=== PATIENT | female | born 1940 | race Caucasian/White ===

== ENCOUNTER 2017-10-24 06:37 | Emergency (ER) | payer MEDICARE ==
--- NOTE | 2017-10-24 06:49 | ER Report ---
History and Physical Time Seen By MD: 06:41 (SUZIE NAVARRO MD) HPI/ROS CHIEF COMPLAINT: short of breath HISTORY OF PRESENT ILLNESS: This is a 77 year old female. She came to the ER with her daughter this morning because of shortness of breath. [place] and has been short of breath. If she takes it easy and slow she does okay. She has not yet gotten established with a doctor here, but has appointment scheduled with Dr. Hunt and will be seeing a early childhood director as well. 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 She normally wears oxygen at home. She has mild chest tightness this morning. No fevers or chills, but does have a chronic cough. She does have oxygen at home and is usually on 2.5-3 liters. She said her concentrator was not working well and switched to portable which did not seem to be helping. REVIEW OF SYSTEMS: Constitutional: As jaron. Eyes: No vision changes. ENT: No sore throat. No congestion. Cardiovascular: As above. Respiratory: As above. Gastrointestinal: No abdominal pain. No nausea or vomiting. Genitourinary: No dysuria. Skin: No rashes. Neurological: No weakness. (SUZIE NAVARRO MD) Allergies: Coded Allergies: amoxicillin (Verified Allergy, Intermediate, 10/24/17) azithromycin (Verified Allergy, Intermediate, 10/24/17) bisoprolol (Verified Allergy, Intermediate, 10/24/17) cephalexin (Verified Allergy, Intermediate, 10/24/17) clavulanic acid (Verified Allergy, Intermediate, 10/24/17) Home Meds Reported Medications Omeprazole (OMEPRAZOLE) 20 Mg Tablet.dr, 20 MG PO QDAY, TAB 10/24/17 Docusate Sodium (COLACE) 100 Mg Capsule, 100 MG PO QDAY, CAPSULE 10/24/17 Lactobacillus Combination No.4 (PROBIOTIC) 1 Each Capsule, 1 EACH PO QDAY, CAPSULE 10/24/17 Fenofibrate Nanocrystallized (FENOFIBRATE) 145 Mg Tablet, 145 MG PO QDAY 10/24/17 Hydrocodone Bit/Acetaminophen (HYDROCODON-ACETAMINOPHEN 5-325) 1 Each Tablet, 1 EACH PO Q4H, TAB 10/24/17 Levothyroxine Sodium (LEVOTHYROXINE SODIUM) 75 Mcg Tablet, 75 MCG PO QDAY, TAB 10/24/17 Hydrochlorothiazide (HYDROCHLOROTHIAZIDE) 25 Mg Tablet, 1 TAB PO QDAY, TAB 10/24/17 Folic Acid (FOLIC ACID) 1 Mg Tablet, 1 MG PO QDAY, TAB 10/24/17 Amitriptyline Hcl (AMITRIPTYLINE HCL) 10 Mg Tablet, 10 MG PO QHS, #5 TAB 10/24/17 Reviewed Nurses Notes: Yes (SUZIE NAVARRO MD) Constitutional Vital Sign - Last 24 Hours 10/24/17 10/24/17 10/24/17 10/24/17 06:42 06:45 07:04 07:13 Temp 98.1 Pulse 72 Resp 24 B/P (MAP) 139/79 139/79 (99) 128/65 (86) Pulse Ox 44 O2 Delivery Room Air O2 Flow Rate 2.0 10/24/17 10/24/17 10/24/17 10/24/17 07:39 07:45 08:12 08:30 Pulse 89 Resp 26 B/P (MAP) 110/54 (72) 151/73 (99) 134/71 (92) Pulse Ox 98 (VALERIA RILEY DO) Physical Exam General Appearance: The patient is alert. Acute distress due to shortness of breath. Eyes: Pupils are equal, round. No pallor, injection or icterus. ENT: Mucous membranes are moist. Normal oral mucosa. Posterior oropharynx is normal. Neck: Supple and non tender. No lymphadenopathy. Respiratory: Lungs have dry crackles, but the patient tells me she always does. Her oxygen saturations are up to 94% on 2 liters by nasal canula. Cardiovascular: Regular rate and rhythm. No murmurs, gallops or rubs. Normal capillary refill. No edema. Gastrointestinal: Abdomen is soft and non tender. Nondistended. Normal active bowel sounds. Neurological: Alert and oriented x3. Skin: Warm and dry. Musculoskeletal: Extremities are nontender. DIFFERENTIAL DIAGNOSIS: After history and physical exam, differential diagnosis was considered for shortness of breath including but not limited to pulmonary infectious process, COPD, asthma, pulmonary embolus and congestive heart failure. Most likely shortness of breath is going to be due to mechanical failure of her oxygen equipment and she is doing much better on the oxygen here in the ER. (SUZIE NAVARRO MD) Medical Decision Making Data Points Result Diagram: 10/24/17 0702 10/24/17 0702 Laboratory Hematology Test 10/24/17 07:02 Red Blood Count 4.36 M/uL (4.17-5.56) Mean Corpuscular Volume 93.6 fL (80.0-96.0) Mean Corpuscular Hemoglobin 32.4 pg (26.0-33.0) Mean Corpuscular Hemoglobin Concent 34.6 g/dL (32.0-36.0) Red Cell Distribution Width 15.3 % (11.5-14.5) Mean Platelet Volume 7.5 fL (7.2-11.1) Neutrophils (%) (Auto) 68.2 % (39.4-72.5) Lymphocytes (%) (Auto) 17.7 % (17.6-49.6) Monocytes (%) (Auto) 10.9 % (4.1-12.4) Eosinophils (%) (Auto) 2.4 % (0.4-6.7) Basophils (%) (Auto) 0.8 % (0.3-1.4) Nucleated RBC Relative Count (auto) 0.1 /100WBC Neutrophils # (Auto) 4.2 K/uL (2.0-7.4) Lymphocytes # (Auto) 1.1 K/uL (1.3-3.6) Monocytes # (Auto) 0.7 K/uL (0.3-1.0) Eosinophils # (Auto) 0.2 K/uL (0.0-0.5) Basophils # (Auto) 0.1 K/uL (0.0-0.1) Nucleated RBC Absolute Count (auto) 0.01 K/uL D-Dimer Quantitative (PE/DVT) 0.80 ug/ml (0-0.50) Sodium Level 136 mmol/L (137-145) Potassium Level 2.9 mmol/L (3.5-5.0) Chloride Level 92 mmol/L (98-107) Carbon Dioxide Level 37 mmol/L (22-31) Blood Urea Nitrogen 18 mg/dl (7-18) Creatinine 0.80 mg/dl (0.52-1.04) Glomerular Filtration Rate Calc > 60.0 Random Glucose 107 mg/dl (75-110) Calcium Level 9.4 mg/dl (8.4-10.2) Total Bilirubin 0.5 mg/dl (0.2-1.3) Aspartate Amino Transf (AST/SGOT) 32 U/L (0-35) Alanine Aminotransferase (ALT/SGPT) 37 U/L (0-56) Alkaline Phosphatase 93 U/L (0-126) Troponin I 0.014 ng/ml B-Type Natriuretic Peptide 155 pg/ml (0-100) Total Protein 7.6 gm/dl (6.3-8.2) Albumin 3.8 g/dl (3.5-5.0) Chemistry Test 10/24/17 07:02 White Blood Count 6.2 k/uL (4.5-11.0) Red Blood Count 4.36 M/uL (4.17-5.56) Hemoglobin 14.1 g/dL (12.0-16.0) Hematocrit 40.8 % (34.0-47.0) Mean Corpuscular Volume 93.6 fL (80.0-96.0) Mean Corpuscular Hemoglobin 32.4 pg (26.0-33.0) Mean Corpuscular Hemoglobin Concent 34.6 g/dL (32.0-36.0) Red Cell Distribution Width 15.3 % (11.5-14.5) Platelet Count 327 K/uL (150-450) Mean Platelet Volume 7.5 fL (7.2-11.1) Neutrophils (%) (Auto) 68.2 % (39.4-72.5) Lymphocytes (%) (Auto) 17.7 % (17.6-49.6) Monocytes (%) (Auto) 10.9 % (4.1-12.4) Eosinophils (%) (Auto) 2.4 % (0.4-6.7) Basophils (%) (Auto) 0.8 % (0.3-1.4) Nucleated RBC Relative Count (auto) 0.1 /100WBC Neutrophils # (Auto) 4.2 K/uL (2.0-7.4) Lymphocytes # (Auto) 1.1 K/uL (1.3-3.6) Monocytes # (Auto) 0.7 K/uL (0.3-1.0) Eosinophils # (Auto) 0.2 K/uL (0.0-0.5) Basophils # (Auto) 0.1 K/uL (0.0-0.1) Nucleated RBC Absolute Count (auto) 0.01 K/uL D-Dimer Quantitative (PE/DVT) 0.80 ug/ml (0-0.50) Glomerular Filtration Rate Calc > 60.0 Calcium Level 9.4 mg/dl (8.4-10.2) Total Bilirubin 0.5 mg/dl (0.2-1.3) Aspartate Amino Transf (AST/SGOT) 32 U/L (0-35) Alanine Aminotransferase (ALT/SGPT) 37 U/L (0-56) Alkaline Phosphatase 93 U/L (0-126) Troponin I 0.014 ng/ml B-Type Natriuretic Peptide 155 pg/ml (0-100) Total Protein 7.6 gm/dl (6.3-8.2) Albumin 3.8 g/dl (3.5-5.0) Coagulation Test 10/24/17 07:02 D-Dimer Quantitative (PE/DVT) 0.80 ug/ml (VALERIA RILEY DO) EKG/Imaging EKG Interpretation 12 lead EKG: Rhythm: normal sinus rhythm, rate 84 Shipman: normal QRS: Prolonged QT ST segments: Nonspecific ST and T-wave changes (SUZIE NAVARRO MD) Imaging TA CHEST WW/O CNTR (PULRoscoe AGUILAR) HISTORY: hypoxia ADDITIONAL HISTORY: None. TECHNIQUE: CTA chest with intravenous contrast. Axial imaging acquired following administration of IV contrast timed for maximum opacification of the pulmonary arterial vasculature. Slab 3-D MIP reconstructed images were also created for further evaluation and interpretation. Reconstruction of the source data set includes multiplanar 2-D in the sagittal and coronal planes and 3-D reconstructed coronal slab MIP series. 3-D images were created by the technologist. Dose Lowering Technique One of the following dose optimization techniques was utilized in the performance of this exam: Automated exposure control; adjustment of the mA and/ or kV according to the patient's size; or use of an iterative reconstruction technique. Specific details can be referenced in the facility's radiology CT exam operational policy. CONTRAST: 25 mL Isovue-370 COMPARISON: Two view chest performed earlier today FINDINGS: Lungs/pleura: Coarse interstitial changes are seen throughout the lungs with peripheral blebs. There is left apical pleural thickening. Also along the lateral aspect of the left pulmonary apex is a rounded area of consolidation measuring 1.9 x 2.1 cm and abuts the lateral pleural margin. Small air bronchograms are present. There appears to be a feeding artery. The appearance is concerning for a neoplastic process.. There are pleural-based calcifications seen along the inferolateral left thorax Heart/vessels: No evidence of pulmonary emboli. Pulmonary trunk is dilated at 3.8 cm.. Main pulmonary arteries also dilated there are moderate vascular calcifications of the thoracic aorta and branch vessels including the coronary arteries. Mediastinum/lymph nodes: 1.2 x 0.7 cm prevascular space lymph node or calcified precarinal and AP window lymph nodes subcentimeter pretracheal and AP window lymph nodes also noted Visualized upper abdomen: Calcific granulomas in the spleen. Liver is incompletely imaged although there is suggestion of hepatomegaly Bones/soft tissues: Scoliosis of the thoracic spine. No aggressive appearing bone lesions are seen Additional findings: None IMPRESSION: No evidence of pulmonary emboli Coarse initial changes and peripheral blebs are seen throughout the lungs likely chronic There is a 1.9 x 2.1 cm rounded area of consolidation in the lateral aspect the left pulmonary apex with small air bronchograms in the feeding artery. The appearance is concerning for neoplastic process. This could be further evaluated with percutaneous biopsy or PET scan Pleural-based calcification seen along the inferolateral left thorax raising the possibility of asbestos exposure. Evidence of a prior granulomatous process Dilatation of the pulmonary trunk and main pulmonary arteries which can be seen with pulmonary arterial hypertension. CHEST PA AND LAT INDICATION: RESP DISTRESS COMPARISON: None available FINDINGS: Heart size within normal limits. There is diffuse interstitial prominence noted throughout the lungs. Areas of fibrosis are seen within the lower lobes. Within the left upper lobe peripherally, there is an area of increased airspace density this may be related to underlying interstitial disease, but infiltrate or mass is not excluded. There is no pneumothorax or pleural effusion. IMPRESSION: 1. Diffuse underlying interstitial lung disease 2. Hazy peripheral left upper lobe opacity, this could represent an area area of scarring or fibrosis, infiltrate or underlying mass. Recommend CT for further characterization. (VALERIA RILEY DO) ED Course/Re-evaluation Clinical Indication for ER IV: IV Access (SUZIE NAVARRO MD) ED Course Discussed with Dr. Navarro and assumed care at 0705 Re-evaluation 0740- I re evaluated the patient at 740 and updated the patient on course of treatment. Patient's d-dimer came back elevated prompting a CTA of the chest to rule out pulmonary embolism. The patient was resting comfortably on supplemental oxygen at time of reevaluation in no acute distress. Patient voiced understanding of the plan. Potassium levels were found to be 2.9 and the patient received 40 meq of potassium for repletion CTA results showed a small opacity in the left apex which is concerning for neoplasm so a clearance representative from oncology came to speak with the patient Respiratory therapy also came to evaluate the patient Patient was stable at time of discharge. Decision to Disposition Date: Oct 24, 2017 Decision to Disposition Time: 10:57 (VALERIA RILEY DO) Depart Departure Latest Vital Signs Vital Signs Date Time Temp Pulse Resp B/P (MAP) Pulse Ox O2 Delivery O2 Flow Rate FiO2 10/24/17 08:30 134/71 (92) 10/24/17 07:39 89 26 98 10/24/17 07:13 2.0 10/24/17 06:42 98.1 Room Air (VALERIA RILEY DO) Impression: Primary Impression: Dyspnea Condition: Improved Disposition: HOME OR SELF-CARE Patient Instructions: Dyspnea (ED) Additional Instructions: Please follow up with her family doctor. These returned promptly if any worsening shortness of breath, fevers, chills, chest pain, abdominal pain, nausea, vomiting. SUZIE NAVARRO MD Oct 24, 2017 06:49 VALERIA RILEY DO Oct 24, 2017 07:06
--- NOTE | 2017-10-24 06:53 | EKG ---
FACILITY: [facility] PATIENT NAME: JIA BRYSON : [id number] MR: [id number] V: [id number] EXAM DATE: ORDERING PHYSICIAN: SUZIE INGRAM TECHNOLOGIST: DAVE Duke Reason : CP Blood Pressure : / mmHG Vent. Rate : 084 BPM Atrial Rate : 084 BPM P-R Int : 148 ms QRS Dur : 086 ms QT Int : 408 ms P-R-T Axes : 057 -09 004 degrees QTc Int : 482 ms Normal sinus rhythm Voltage criteria for left ventricular hypertrophy Prolonged QT Abnormal ECG No previous ECGs available Referred By: NATALY Confirmed By:
[2017-10-24 07:21] LABS: PLATELET COUNT, AUTOMATED 327 K/uL (150-450)
[2017-10-24] MEDS ORDERED: LACT1CAP6 PO (07:24)
[2017-10-24] MEDS ORDERED: AMIT-104 PO (07:24)
[2017-10-24] MEDS ORDERED: FOLI-68 PO (07:24)
[2017-10-24] MEDS ORDERED: HYDR-385 PO (07:24)
[2017-10-24] MEDS ORDERED: DOCU-416 PO (07:24)
[2017-10-24] MEDS ORDERED: OMEP-137 PO (07:24)
[2017-10-24] MEDS ORDERED: HYDR-2966 PO (07:24)
[2017-10-24] MEDS ORDERED: LEVO75TA73 PO (07:24)
[2017-10-24] MEDS ORDERED: FENO145T36 PO (07:24)
[2017-10-24] MEDS ORDERED: POTASSIUM CHL 20 MEQ TABCR PO ONE (07:30)
[2017-10-24] MEDS ORDERED: NS 0.9% 150 ML BAG 150 ML ONE (07:47)
[2017-10-24] MEDS ORDERED: IOPAMIDOL 76% 75 ML INFUS BTL 75 ML ONE (07:47)
--- NOTE | 2017-10-24 08:02 | RADIOLOGY IMAGING REPORT ---
FACILITY: [facility] - [place] PATIENT NAME: Elana Fuentes : 1940 MR: [id number] V: [id number] EXAM DATE: ORDERING PHYSICIAN: SUZIE INGRAM TECHNOLOGIST: Location: [facility] [place] Patient: Elana Fuentes : 1940 Visit/Account:[id number] Date of Sevice: 10/24/2017 CHEST PA AND LAT INDICATION: RESP DISTRESS COMPARISON: None available FINDINGS: Heart size within normal limits. There is diffuse interstitial prominence noted throughout the lungs. Areas of fibrosis are seen with in the lower lobes. Within the left upper lobe peripherally, there is an area of increased airspace density this may be related to underlying interstitial disease, but infiltrate or mass is not exclude d. There is no pneumothorax or pleural effusion. IMPRESSION: 1. Diffuse underlying interstitial lung disease 2. Hazy peripheral left upper lobe opacity, this could represent an area area of scarring or fibrosi s, infiltrate or underlying mass. Recommend CT for further characterization. Report Dictated By: Himanshu Reagan at 10/24/2017 7:55 AM Report E-Signed By: Himanshu Reagan at 10/24/2017 7:58 AM WSN:[id number]
[2017-10-24 08:30] VITALS: BP 134/71
--- NOTE | 2017-10-24 08:40 | RADIOLOGY IMAGING REPORT ---
FAC[place] [facility] [place]IENT NAME: Elana Fuentes : 1940 MR: [id number] V: [id number] EXAM DATE: ORDERING PHYSICIAN: VALERIA RILEY TECHNOLOGIST: Location: [facility] [place] Patient: Elana Fuentes : 1940 Visit/Account:[id number] Date of Sevice: 10/24/2017 CTA CHEST WW/O CNTR (PULM ANG) HISTORY: hypoxia ADDITIONAL HISTORY: None. TECHNIQUE: CTA chest with intravenous contrast. Axial imaging acquired following administration of IV contrast timed for maximum opacification of the pulmonary arterial vasculature. Slab 3-D MIP preet nstructed images were also created for further evaluation and interpretation. Reconstruction of the [facility] data set includes multiplanar 2-D in the sagittal and coronal planes and 3-D reconstructed jigna nal slab MIP series. 3-D images were created by the technologist. Dose Lowering Technique One of the following dose optimization techniques was utilized in the performance of this exam: Autom ated exposure control; adjustment of the mA and/or kV according to the patient's size; or use of an i terative reconstruction technique. Specific details can be referenced in the facility's radiology C T exam operational policy. CONTRAST: 25 mL Isovue-370 COMPARISON: Two view chest performed earlier today FINDINGS: Lungs/pleura: Coarse interstitial changes are seen throughout the lungs with peripheral blebs. Ther e is left apical pleural thickening. Also along the lateral aspect of the left pulmonary apex is a r ounded area of consolidation measuring 1.9 x 2.1 cm and abuts the lateral pleural margin. Small air bronchograms are present. There appears to be a feeding artery. The appearance is concerning for a neoplastic process.. There are pleural-based calcifications seen along the inferolateral left thorax Heart/vessels: No evidence of pulmonary emboli. Pulmonary trunk is dilated at 3.8 cm.. Main pulmonary arteries also dilated there are moderate vascu lar calcifications of the thoracic aorta and branch vessels including the coronary arteries. Mediastinum/lymph nodes: 1.2 x 0.7 cm prevascular space lymph node or calcified precarinal and AP wi ndow lymph nodes subcentimeter pretracheal and AP window lymph nodes also noted Visualized upper abdomen: Calcific granulomas in the spleen. Liver is incompletely imaged although there is suggestion of hepatomegaly Bones/soft tissues: Scoliosis of the thoracic spine. No aggressive appearing bone lesions are seen Additional findings: None IMPRESSION: No evidence of pulmonary emboli Coarse initial changes and peripheral blebs are seen throughout the lungs likely chronic There is a 1.9 x 2.1 cm rounded area of consolidation in the lateral aspect the left pulmonary apex w ith small air bronchograms in the feeding artery. The appearance is concerning for neoplastic proces s. This could be further evaluated with percutaneous biopsy or PET scan Pleural-based calcification seen along the inferolateral left thorax raising the possibility of asbes tos exposure. Evidence of a prior granulomatous process Dilatation of the pulmonary trunk and main pulmonary arteries which can be seen with pulmonary arteri al hypertension. Report Dictated By: Ivelisse Gomez MD at 10/24/2017 8:18 AM Report E-Signed By: Ivelisse Gomez MD at 10/24/2017 8:35 AM WSN:[id number]
== END 2017-10-24 11:08 | disposition home or self-care (01) ==
LOC: ER 06:46
DX: R06.02 Shortness of breath (principal)
CPT/HCPCS: 71046; 71275; 83880; 84484; 85025; 85379; 93005; 99284; A9270; Q9967; 82040; 82247; 82310; 82374; 82435; 82565; 82947; 84075; 84132; 84155; 84295; 84450; 84460; 84520

== ENCOUNTER 2017-11-09 13:21 | Outpatient (RCR) | payer MEDICARE ==
[2017-10-27 10:04] VITALS: BP 135/72
--- NOTE | 2017-10-27 17:14 | ONCOLOGY CONSULTATION ---
EVENT DATE: October 27, 2017 REASON FOR CONSULTATION Evaluation and management of left pulmonary nodule. HISTORY OF PRESENT ILLNESS Patient is a 77-year-old female who was diagnosed with arthritis, most probably rheumatoid arthritis, and as per patient she had in the past pulmonary nodule and the patient was treated with rituximab at that time, but there is no documentation so far. Patient presented to the emergency room at [facility] recently with increasing shortness of breath, having come from low elevation to high elevation area. But during her evaluation patient had a CT chest done on October 24, 2017 which showed 1.9 x 2.1 cm round area of consolidation in the lateral aspect of the left pulmonary apex with a small air bronchogram in the feeding artery concerning for a neoplastic process. Patient was referred for further evaluation and management. PAST MEDICAL HISTORY 1. Arthritis, most probably moderate arthritis with pulmonary nodule in the past treated with rituximab. 2. Hypertension. 3. Hypothyroidism. 4. Hypercholesterolemia. 5. GERD. PAST SURGICAL HISTORY 1. Total abdominal hysterectomy and bilateral salpingo-oophorectomy for uterine bleeding. 2. Cholecystectomy. 3. Tonsillectomy FAMILY HISTORY Noncontributory. SOCIAL HISTORY Patient is with three children, two sons and one daughter. 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 She quit smoking 20 years ago after a half a pack a day for 20 years. Denies any abuse of alcohol or illicit drugs. CURRENT MEDICATIONS 1. Omeprazole 20 mg daily. 2. Colace 100 mg daily. 3. Lactobacillus combination number four. 4. Probiotic one capsule daily. 5. Fenofibrate 145 mg daily. 6. Hydrocodone/acetaminophen 5/325 one tablet every four hours. 7. Levothyroxine 75 mcg daily. 8. Hydrochlorothiazide 25 mg daily. 9. Folic acid 1 mg daily. 10. Amitriptyline 10 mg at bedtime. ALLERGIES 1. KEFLEX. 2. AUGMENTIN. 3. ZITHROMAX. All cause skin rash. REVIEW OF SYSTEMS CONSTITUTIONAL: No appetite or weight change. No fever, chills or sweating. No recent infection. HEENT: Ears: No tinnitus or hearing problem. Nose: No nasal discharge or epistaxis. Throat: No sore throat or mouth ulcers. Eyes: No diplopia or visual changes. RESPIRATORY: She has shortness of breath. Patient has cough with expectoration. Nr hemoptysis. CARDIOVASCULAR: No chest pain, orthopnea, or paroxysmal nocturnal dyspnea (PND) . No edema. No palpitations. GASTROINTESTINAL: No nausea or vomiting. No diarrhea or constipation. No change in bowel movements. No heartburn or swallowing difficulties. No abdominal pain. No jaundice. No hematemesis, melena or rectal bleeding. GENITOURINARY: No hematuria or dysuria. MUSCULOSKELETAL: She has pain all over her joints. NEUROLOGICAL: She has occasional headaches. No tingling or numbness in the hands or feet. No convulsions. HEMATOLOGIC/LYMPHATIC: No bleeding or easy bruising. She is weak, tired and fatigued. No enlarged lymph nodes. SKIN: No skin rash or lumps. PSYCHIATRIC: No anxiety or depression. PHYSICAL EXAMINATION GENERAL: Looks stable. Well-developed, well-nourished, and in no acute distress. VITAL SIGNS: Blood pressure 135/72, pulse 108 per minute, respirations 16 per minute, temperature 96.8, oxygen saturation 98% on 4L oxygen. HEENT: Head: Atraumatic. No sinus tenderness to palpation. Eyes: No icterus or conjunctivitis. Mouth and Throat: No oral thrush or mucositis. NECK: Supple. No cervical or supraclavicular lymphadenopathy. LUNGS: Patient has bilateral fine crackles. HEART: Regular rate and rhythm. No gallops, murmurs, clicks or rubs. ABDOMEN: Soft and lax. No tenderness. No hepatosplenomegaly. No masses. EXTREMITIES: No cyanosis, clubbing or edema. LYMPHATICS: No peripheral lymphadenopathy. NEUROLOGICAL: Conscious, alert and oriented times three. No focal motor or sensory deficits. PSYCHIATRIC: Mood and affect appear normal. SKIN: No skin rash, bruise or purpuric eruption. ASSESSMENT 1. Left upper pulmonary nodule. Could be due to her rheumatoid arthritis with pulmonary nodule versus lung cancer, especially adenocarcinoma given her background of pulmonary fibrosis. I am planning to get a CT-guided biopsy of the pulmonary nodule and further evaluation and management will depend on the result. If the patient will have rheumatoid arthritis causing the pulmonary nodule, then the treatment with rituximab will be the plan of management. But if the patient will have a cancer then a staging workup followed by treatment depending on the stage will be the plan of management. I spent time with the patient and her daughter explaining the plan of management. They are agreeable with such plan. 2. Hypothyroidism on treatment. 3. Hypertension on treatment. 4. Gastroesophageal reflux disease on omeprazole. 5. Arthritis, most probably rheumatoid arthritis with pulmonary nodule with treatment with rituximab in the past. PLAN 1. CT-guided biopsy of the left upper pulmonary nodule. 2. Patient to return in one week after her biopsy for further evaluation and management. 3. Patient to contact us for any new concern or complaints. MTDD
[~2017-11-09] VITALS: Ht 158.1 cm; Wt 73.7 kg
[~2017-11-09 13:21] MED LIST: AMIT-104 PO; DOCU-416 PO; FENO145T36 PO; FOLI-68 PO; HYDR-2966 PO; HYDR-385 PO; LACT1CAP6 PO; LEVO75TA73 PO; OMEP-137 PO
[2017-11-09 13:39] VITALS: BP 104/51
--- NOTE | 2017-11-09 17:32 | ONCOLOGY FOLLOW UP NOTE ---
EVENT DATE: November 09, 2017 DIAGNOSES 1. Left upper lobe nodule negative by biopsy for malignancy. 2. Hypothyroidism. 3. Hypertension. 4. Gastroesophageal reflux disease. 5. Arthritis, possible rheumatoid arthritis. CHIEF COMPLAINT Patient is here today for followup of her biopsy of the left upper lobe nodule. HEMATOLOGY/ONCOLOGY HISTORY Patient is a 77-year-old female who was diagnosed with arthritis, most probably rheumatoid arthritis, and as per patient she had in the past pulmonary nodule and the patient was treated with rituximab at that time, but there is no documentation so far. Patient presented to the emergency room at [facility] recently with increasing shortness of breath, having come from low elevation to high elevation area. But during her evaluation patient had a CT chest done on October 24, 2017 which showed 1.9 x 2.1 cm round area of consolidation in the lateral aspect of the left pulmonary apex with a small air bronchogram in the feeding artery concerning for a neoplastic process. Patient was referred for further evaluation and management. Patient had CT-guided biopsy of the left upper lobe nodule done on November 03, 2017 and the pathology came back negative for malignancy or vasculitis. There was benign lung parenchyma fibrosis and chronic inflammation to include noncaseating granulomatous inflammation. HISTORY OF PRESENT ILLNESS Patient is here today for followup of her left upper pulmonary lobe. She is doing fine currently, except for having fatigue and weakness from her hypoxemia. Other than that she is doing fine. PAST MEDICAL HISTORY 1. Arthritis, most probably moderate arthritis with pulmonary nodule in the past treated with rituximab. 2. Hypertension. 3. Hypothyroidism. 4. Hypercholesterolemia. 5. GERD. PAST SURGICAL HISTORY 1. Total abdominal hysterectomy and bilateral salpingo-oophorectomy for uterine bleeding. 2. Cholecystectomy. 3. Tonsillectomy FAMILY HISTORY Noncontributory. SOCIAL HISTORY Patient is with three children, two sons and one daughter. 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 She quit smoking 20 years ago after a half a pack a day for 20 years. Denies any abuse of alcohol or illicit drugs. CURRENT MEDICATIONS 1. Omeprazole 20 mg daily. 2. Colace 100 mg daily. 3. Lactobacillus combination number four. 4. Probiotic one capsule daily. 5. Fenofibrate 145 mg daily. 6. Hydrocodone/acetaminophen 5/325 one tablet every four hours. 7. Levothyroxine 75 mcg daily. 8. Hydrochlorothiazide 25 mg daily. 9. Folic acid 1 mg daily. 10. Amitriptyline 10 mg at bedtime. ALLERGIES 1. KEFLEX. 2. AUGMENTIN. 3. ZITHROMAX. All cause skin rash. REVIEW OF SYSTEMS CONSTITUTIONAL: No appetite or weight change. No fever, chills or sweating. No recent infection. HEENT: Ears: No tinnitus or hearing problem. Nose: No nasal discharge or epistaxis. Throat: No sore throat or mouth ulcers. Eyes: No diplopia or visual changes. RESPIRATORY: She has shortness of breath. Patient has cough with expectoration. Nr hemoptysis. CARDIOVASCULAR: No chest pain, orthopnea, or paroxysmal nocturnal dyspnea (PND) . No edema. No palpitations. GASTROINTESTINAL: No nausea or vomiting. No diarrhea or constipation. No change in bowel movements. No heartburn or swallowing difficulties. No abdominal pain. No jaundice. No hematemesis, melena or rectal bleeding. GENITOURINARY: No hematuria or dysuria. MUSCULOSKELETAL: She has pain all over her joints. NEUROLOGICAL: She has occasional headaches. No tingling or numbness in the hands or feet. No convulsions. HEMATOLOGIC/LYMPHATIC: No bleeding or easy bruising. She is weak, tired and fatigued. No enlarged lymph nodes. SKIN: No skin rash or lumps. PSYCHIATRIC: No anxiety or depression. PHYSICAL EXAMINATION GENERAL: Looks stable. Well-developed, well-nourished, and in no acute distress. VITAL SIGNS: Blood pressure 104/51, pulse 96 per minute, respirations 16 per minute, temperature 97.1, oxygen saturation 95% on 6L oxygen. HEENT: Head: Atraumatic. No sinus tenderness to palpation. Eyes: No icterus or conjunctivitis. Mouth and Throat: No oral thrush or mucositis. NECK: Supple. No cervical or supraclavicular lymphadenopathy. LUNGS: Patient has bilateral fine crackles. HEART: Regular rate and rhythm. No gallops, murmurs, clicks or rubs. ABDOMEN: Soft and lax. No tenderness. No hepatosplenomegaly. No masses. EXTREMITIES: No cyanosis, clubbing or edema. LYMPHATICS: No peripheral lymphadenopathy. NEUROLOGICAL: Conscious, alert and oriented times three. No focal motor or sensory deficits. PSYCHIATRIC: Mood and affect appear normal. SKIN: No skin rash, bruise or purpuric eruption. DIAGNOSTIC DATA CT-guided biopsy of the left upper lobe nodule done on November 03, 2017 came back negative for malignancy. ASSESSMENT 1. Left upper pulmonary nodule status post CT-guided biopsy done on November 03, 2017 , and the pathology came back negative for malignancy or vasculitis. There was benign lung parenchyma with fibrosis and chronic inflammation to include noncaseating granulomatous inflammation. Given that the nodule is negative for malignancy, I am planning to repeat her CT scan in three months from now and I will see her after that to decide about further management. If that nodule in the left upper lobe continues to grow then I will repeat her CT-guided biopsy at that time. I discussed that with the patient and her daughter. They are agreeable with the plan of management. 2. Hypothyroidism on treatment. 3. Hypertension on treatment. 4. Gastroesophageal reflux disease on omeprazole. 5. Rheumatoid arthritis with pulmonary nodule in the past treated with rituximab at that time. PLAN 1. Continue followup. 2. Patient to return in three months with CBC, chem panel and CT chest. 3. Patient to contact us for any new concerns or complaints. MRAVA
== END 2018-01-24 ==
LOC: ONC 13:21
PROVIDERS: ATTEND Internal Medicine Hematology
DX: R91.1 Solitary pulmonary nodule (principal); E03.9 Hypothyroidism, unspecified; I10 Essential (primary) hypertension; K21.9 Gastro-esophageal reflux disease without esophagitis; M06.9 Rheumatoid arthritis, unspecified; Z87.891 Personal history of nicotine dependence; R53.1 Weakness; R53.83 Other fatigue; R06.02 Shortness of breath; R05 Cough
CPT/HCPCS: G0463 ×2; 99202; 99212

== ENCOUNTER → 2018-01-05 | Outpatient (CLI) | payer MEDICARE | LOC: RESP 02:44 | PROVIDERS: ATTEND Internal Medicine | DX: J98.4 Other disorders of lung (principal) | CPT/HCPCS: 94060; 94726; 94729 ==

== ENCOUNTER 2018-02-15 10:46 | Outpatient (RCR) | payer MEDICARE ==
[2018-02-14 08:42] LABS: PLATELET COUNT, AUTOMATED 286 K/uL (150-450)
[~2018-02-15 10:46] MED LIST changes: +DEXTROSE 5%(*) 100 ML BAG 100 ML IVPB PRN; +LIDOCAINE/SOD BICARB 8.4% SYR ID PRN; +NS(*) 0.9% 100 ML BAG 100 ML IVPB PRN
[2018-02-15 10:57] VITALS: BP 143/73
--- NOTE | 2018-02-15 17:06 | ONCOLOGY FOLLOW UP NOTE ---
EVENT DATE: February 15, 2018 DIAGNOSES 1. Left upper lobe nodule negative by biopsy for malignancy. 2. Hypothyroidism. 3. Hypertension. 4. Gastroesophageal reflux disease. 5. Arthritis, possible rheumatoid arthritis. CHIEF COMPLAINT Patient is here today for followup of her left upper lobe nodule. HEMATOLOGY/ONCOLOGY HISTORY Patient is a 77-year-old female who was diagnosed with arthritis, most probably rheumatoid arthritis, and as per patient she had in the past pulmonary nodule and the patient was treated with rituximab at that time, but there is no documentation so far. Patient presented to the emergency room at [facility] recently with increasing shortness of breath, having come from low elevation to high elevation area. But during her evaluation patient had a CT chest done on October 24, 2017 which showed 1.9 x 2.1 cm round area of consolidation in the lateral aspect of the left pulmonary apex with a small air bronchogram in the feeding artery concerning for a neoplastic process. Patient was referred for further evaluation and management. Patient had CT-guided biopsy of the left upper lobe nodule done on November 03, 2017 and the pathology came back negative for malignancy or vasculitis. There was benign lung parenchyma fibrosis and chronic inflammation to include noncaseating granulomatous inflammation. HISTORY OF PRESENT ILLNESS Patient is here today for followup of her left upper pulmonary lobe nodule. She is complaining of cough and shortness of breath. She is on home oxygen. She is weak, tired and fatigued. PAST MEDICAL HISTORY 1. Arthritis, most probably moderate arthritis with pulmonary nodule in the past treated with rituximab. 2. Hypertension. 3. Hypothyroidism. 4. Hypercholesterolemia. 5. GERD. PAST SURGICAL HISTORY 1. Total abdominal hysterectomy and bilateral salpingo-oophorectomy for uterine bleeding. 2. Cholecystectomy. 3. Tonsillectomy FAMILY HISTORY Noncontributory. SOCIAL HISTORY Patient is with three children, two sons and one daughter. 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 She quit smoking 20 years ago after a half a pack a day for 20 years. Denies any abuse of alcohol or illicit drugs. CURRENT MEDICATIONS 1. Omeprazole 20 mg daily. 2. Colace 100 mg daily. 3. Lactobacillus combination number four. 4. Probiotic one capsule daily. 5. Fenofibrate 145 mg daily. 6. Hydrocodone/acetaminophen 5/325 one tablet every four hours. 7. Levothyroxine 75 mcg daily. 8. Hydrochlorothiazide 25 mg daily. 9. Folic acid 1 mg daily. 10. Amitriptyline 10 mg at bedtime. ALLERGIES 1. KEFLEX. 2. AUGMENTIN. 3. ZITHROMAX. All cause skin rash. REVIEW OF SYSTEMS CONSTITUTIONAL: No appetite or weight change. No fever, chills or sweating. No recent infection. HEENT: Ears: No tinnitus or hearing problem. Nose: No nasal discharge or epistaxis. Throat: No sore throat or mouth ulcers. Eyes: No diplopia or visual changes. RESPIRATORY: She has cough with shortness of breath. No hemoptysis. CARDIOVASCULAR: No chest pain, orthopnea, or paroxysmal nocturnal dyspnea (PND) . No edema. No palpitations. GASTROINTESTINAL: No nausea or vomiting. No diarrhea or constipation. No change in bowel movements. No heartburn or swallowing difficulties. No abdominal pain. No jaundice. No hematemesis, melena or rectal bleeding. GENITOURINARY: No hematuria or dysuria. MUSCULOSKELETAL: She has pain all over her joints. NEUROLOGICAL: She has occasional headaches. No tingling or numbness in the hands or feet. No convulsions. HEMATOLOGIC/LYMPHATIC: No bleeding or easy bruising. She is weak, tired and fatigued. No enlarged lymph nodes. SKIN: No skin rash or lumps. PSYCHIATRIC: No anxiety or depression. PHYSICAL EXAMINATION GENERAL: Looks stable. Well-developed, well-nourished, and in no acute distress. VITAL SIGNS: Blood pressure 143/73, pulse 105 per minute, respirations 16 per minute, temperature 96.6, oxygen saturation 92% on room air. HEENT: Head: Atraumatic. No sinus tenderness to palpation. Eyes: No icterus or conjunctivitis. Mouth and Throat: No oral thrush or mucositis. NECK: Supple. No cervical or supraclavicular lymphadenopathy. LUNGS: Patient has bilateral fine crackles. HEART: Regular rate and rhythm. No gallops, murmurs, clicks or rubs. ABDOMEN: Soft and lax. No tenderness. No hepatosplenomegaly. No masses. EXTREMITIES: No cyanosis, clubbing or edema. LYMPHATICS: No peripheral lymphadenopathy. NEUROLOGICAL: Conscious, alert and oriented times three. No focal motor or sensory deficits. PSYCHIATRIC: Mood and affect appear normal. SKIN: No skin rash, bruise or purpuric eruption. DIAGNOSTIC DATA CBC showed white count 4.6, hemoglobin 13.1, hematocrit 37.6, platelets 286, 000. Chem panel totally normal except chloride 97, carbon dioxide 32, BUN 27. ASSESSMENT 1. Left upper pulmonary nodule status post CT-guided biopsy done on November 03, 2017 , and the pathology came back negative for malignancy or vasculitis. There was benign lung parenchyma with fibrosis and chronic inflammation to include noncaseating granulomatous inflammation. Patient was supposed to have CT scan to be repeated prior to her visit, but she did not do that. I talked to her today regarding the importance of that to decide about further biopsy or not. I am planning to refer her to PET CT scan for evaluation of this solitary pulmonary nodule, and if the PET scan is negative no further biopsy will be decided. But if it is positive then we will proceed with CT-guided biopsy after that. I explained that to the patient and she is agreeable with the plan of management. 2. Hypothyroidism, on treatment. 3. Hypertension, on treatment. 4. Gastroesophageal reflux disease, on omeprazole. 5. Rheumatoid arthritis with pulmonary nodule in the past, treated with rituximab at that time. PLAN 1. PET CT scan for evaluation of left pulmonary nodule. 2. Consider CT-guided biopsy. 3. Patient to return after the above for further evaluation and management. 4. Patient to contact us for any new concern or complaints. MARVA
[2018-03-02] MEDS ORDERED: PRED2.5T6 PO (15:27)
[2018-03-02] MEDS ORDERED: LEVO-3 PO (15:27)
[2018-03-02] MEDS ORDERED: ROPI0.2530 PO (15:27)
[2018-03-02] MEDS ORDERED: RANI-318 PO (15:27)
[2018-03-02] MEDS ORDERED: MIL50PT PO (15:27)
[2018-03-02] MEDS ORDERED: TRIA1CAP85 PO (15:27)
== END 2018-03-28 09:12 | disposition home or self-care (01) ==
LOC: ONC 10:46
PROVIDERS: ATTEND Internal Medicine Hematology
DX: R91.8 Other nonspecific abnormal finding of lung field (principal); E03.9 Hypothyroidism, unspecified; I10 Essential (primary) hypertension; K21.9 Gastro-esophageal reflux disease without esophagitis; M06.9 Rheumatoid arthritis, unspecified; Z87.891 Personal history of nicotine dependence
CPT/HCPCS: 36415; 85025; G0463; 82040; 82247; 82310; 82374; 82435; 82565; 82947; 84075; 84132; 84155; 84295; 84450; 84460; 84520; 99212

== ENCOUNTER → 2018-02-16 | Outpatient (CLI) | payer MEDICARE ==
[~2018-02-16] MED LIST changes: +ACETAMINOPHEN 500 MG TAB PO PRN; +DEXAMETHASONE 4 MG TAB PO PRN; +NS(*) 0.9% 500 ML BAG 500 ML IV PRN; +riTUXimab 500 MG/50 ML SDV 1,000 MG in NS(*) 0.9% 1000 ML BAG 900 ML IV ONE; +riTUXimab 500 MG/50 ML SDV 1,000 MG in NS(*) 0.9% 1000 ML BAG 900 ML IV PRN
[2018-02-16 08:37] VITALS: BP 143/66
[2018-02-16 14:03] VITALS: BP 138/86
== END ==
LOC: SPU 07:47
PROVIDERS: ATTEND Internal Medicine Rheumatology
DX: M05.57 Rheumatoid polyneuropathy with rheumatoid arthritis of ankle and foot (principal)
CPT/HCPCS: 96413; 96415; A9270; J7030; J7040; J8540; J9310

== ENCOUNTER 2018-03-02 15:13 | Emergency (ER) | payer MEDICARE ==
[~2018-03-02 15:13] MED LIST changes: -ACETAMINOPHEN 500 MG TAB PO PRN; -DEXAMETHASONE 4 MG TAB PO PRN; -DEXTROSE 5%(*) 100 ML BAG 100 ML IVPB PRN; -LIDOCAINE/SOD BICARB 8.4% SYR ID PRN; -NS(*) 0.9% 100 ML BAG 100 ML IVPB PRN; -NS(*) 0.9% 500 ML BAG 500 ML IV PRN; -riTUXimab 500 MG/50 ML SDV 1,000 MG in NS(*) 0.9% 1000 ML BAG 900 ML IV ONE; -riTUXimab 500 MG/50 ML SDV 1,000 MG in NS(*) 0.9% 1000 ML BAG 900 ML IV PRN
[2018-03-02] MEDS ORDERED: LEVO-3 PO (15:27)
[2018-03-02] MEDS ORDERED: PRED2.5T6 PO (15:27)
[2018-03-02] MEDS ORDERED: MIL50PT PO (15:27)
[2018-03-02] MEDS ORDERED: RANI-318 PO (15:27)
[2018-03-02] MEDS ORDERED: ROPI0.2528 PO (15:27)
[2018-03-02] MEDS ORDERED: TRIA1CAP85 PO (15:27)
[2018-03-02 15:30] VITALS: BP 120/55
--- NOTE | 2018-03-02 15:30 | ER Report ---
History and Physical Time Seen By MD: 15:31 Hx. of Stated Complaint: SOB, NOT FEELING WELL FOR A FEW DAYS HPI/ROS CHIEF COMPLAINT: short of breath HISTORY OF PRESENT ILLNESS: This is a 77 year old female. She called EMS for shortness of breath. She was at home baking, and did not feel well. Short of breath and a little lightheaded. She was wearing her oxygen. She usually wears 4 liters of oxygen by nasal canula. She denies having any other problems. She denies chest pain. She has some occasional muscle cramps or "marco a horses" under her left breast after coughing. Has a chronic cough, but no worse than usual and non-productive. Has no fevers or chills. Had some mild nausea earlier this morning, but not now. Eating and drinking normally. Normal bowel and bladder today. Checked her pulse ox meter at home and read in the 60s. On EMS arrival, it was in the 50s. Allergies: Coded Allergies: amoxicillin (Verified Allergy, Intermediate, 03/02/18) azithromycin (Verified Allergy, Intermediate, 03/02/18) cephalexin (Verified Allergy, Intermediate, 03/02/18) clavulanic acid (Verified Allergy, Intermediate, 03/02/18) bisoprolol (Verified Allergy, Mild, RASH, 03/02/18) Home Meds Reported Medications Ranitidine Hcl (RANITIDINE HCL) 150 Mg Tablet, 150 MG PO DAILY 03/02/18 Levothyroxine Sodium (LEVOTHYROXINE SODIUM) 100 Mcg Tablet, 100 MCG PO DAILY 03/02/18 Triamterene/Hydrochlorothiazid (TRIAMTERENE-HCTZ 37.5-25 MG CP) 1 Each Capsule, 1 TAB PO DAILY 03/02/18 Prednisone (PREDNISONE) 2.5 Mg Tablet, 2.5 MG PO DAILY 03/02/18 Milnacipran (SAVELLA) 50 Mg Tab, 50 MG PO BID 03/02/18 Ropinirole Hcl (ROPINIROLE HCL) 0.25 Mg Tablet, 0.25 MG PO HS 03/02/18 Omeprazole (OMEPRAZOLE) 20 Mg Tablet.dr, 20 MG PO QDAY, TAB 10/24/17 Docusate Sodium (COLACE) 100 Mg Capsule, 100 MG PO QDAY, CAPSULE 10/24/17 Lactobacillus Combination No.4 (PROBIOTIC) 1 Each Capsule, 1 EACH PO QDAY, CAPSULE 10/24/17 Fenofibrate Nanocrystallized (FENOFIBRATE) 145 Mg Tablet, 145 MG PO QDAY 10/24/17 Discontinued Reported Medications Levothyroxine Sodium (LEVOTHYROXINE SODIUM) 75 Mcg Tablet, 75 MCG PO QDAY, TAB 10/24/17 Reviewed Nurses Notes: Yes Hx Smoking: Yes Smoking Status: Former Smoker Hx Substance Use Disorder: No Hx Alcohol Use: No Constitutional Vital Sign - Last 24 Hours 03/02/18 03/02/18 03/02/18 03/02/18 15:14 15:15 15:21 15:27 Temp 98.7 Pulse 97 Resp 14 B/P (MAP) 114/52 114/52 (72) 126/66 (86) Pulse Ox 94 O2 Delivery Nasal Cannula O2 Flow Rate 4.0 03/02/18 03/02/18 15:30 15:45 Pulse 83 94 Resp 30 30 B/P (MAP) 120/55 (76) Pulse Ox 96 98 Physical Exam General Appearance: The patient is alert. No acute distress. Eyes: Pupils are equal, round. No pallor, injection or icterus. ENT: Mucous membranes are moist. Normal oral mucosa. Posterior oropharynx is normal. Neck: Supple and non tender. Respiratory: Lungs do have bibasilar rales, which I have heard or previous evaluation, does not seem different than chronic for her. Cardiovascular: Regular rate and rhythm. No murmurs, gallops or rubs. Normal capillary refill. No edema. Gastrointestinal: Abdomen is soft and non tender. Nondistended. Normal active bowel sounds. Neurological: Alert and oriented x3. Skin: Warm and dry. No rashes. DIFFERENTIAL DIAGNOSIS: After history and physical exam, differential diagnosis was considered for shortness of breath including but not limited to pulmonary infectious process, COPD, asthma, pulmonary embolus and congestive heart failure. Given the fact that her pulse ox is so good on oxygen now, I suspect an oxygen equipment problem home Medical Decision Making Data Points Laboratory ED Course/Re-evaluation ED Course Her oxygen company went and evaluated at her home and found that her tubing was unplugged. Because of this, the patient would prefer not to do any further testing. We were able to find this out before EKG and x-ray were obtained. She will be discharged home with her regular oxygen use. Decision to Disposition Date: Mar 02, 2018 Decision to Disposition Time: 15:46 Depart Departure Latest Vital Signs Vital Signs Date Time Temp Pulse Resp B/P (MAP) Pulse Ox O2 Delivery O2 Flow Rate FiO2 03/02/18 15:45 94 30 98 03/02/18 15:30 120/55 (76) 03/02/18 15:27 4.0 03/02/18 15:14 98.7 Nasal Cannula Impression: Primary Impression: Dyspnea Additional Impression: Requires oxygen therapy Condition: Stable Disposition: HOME OR SELF-CARE Referrals: LUPE COSTELLO MD (PCP) Additional Instructions: Because we found that your shortness of breath was due to a failure of oxygen equipment, we will be sending you home on your regular oxygen. Should you have further problems, you can always return for re-evaluation. Problem Qualifiers Primary Impression: Dyspnea Dyspnea type: unspecified Qualified Codes: R06.00 - Dyspnea, unspecified SUZIE INGRAM MD Mar 02, 2018 15:30
== END 2018-03-02 16:00 | disposition home or self-care (01) ==
LOC: ER 15:19
DX: R06.02 Shortness of breath (principal); Z99.81 Dependence on supplemental oxygen
CPT/HCPCS: 99282

== ENCOUNTER → 2018-06-08 | Outpatient (CLI) | payer MEDICARE ==
[~2018-06-08] MED LIST changes: +LEVO-3 PO; +MIL50PT PO; +PRED2.5T6 PO; +RANI-318 PO; +ROPI0.2530 PO; +TRIA1CAP85 PO
--- NOTE | 2018-06-08 16:09 | RADIOLOGY IMAGING REPORT ---
FACILITY: [facility] PATIENT NAME: Elana Fuentes : 1940 MR: [id number] V: [id number] EXAM DATE: ORDERING PHYSICIAN: FORTUNATO JENKINS TECHNOLOGIST: Location: [facility] Patient: Elana Fuentes : 1940 Visit/Account:[id number] Date of Sevice: 06/08/2018 EXAMINATION: CT Thorax W/O Contrast With High Resolution imaging 06/08/2018 10:00 AM HISTORY: ILD. Shortness of breath. TECHNIQUE: High resolution CT chest protocol: A non-intravenous enhanced contiguous spiral scan was obtained through the chest. This was followed by inspiration and expiration 1 mm thick high-resolutio n axial images at 15 mm intervals, reconstructed using a high spatial resolution algorithm. One of the following dose optimization techniques was utilized in the performance of this exam: Autom ated exposure control; adjustment of the mA and/or kV according to the patient's size; or use of an i terative reconstruction technique. Specific details can be referenced in the facility's radiology C T exam operational policy. COMPARISON STUDIES: CTA for PE 10/24/2017. FINDINGS: Lungs / pleura: Peripheral reticular fibrosis with honeycombing involving upper and lower lobes mild basilar prominence. The overall pattern has not progressed substantially since October. No superimpos ed acute groundglass exacerbation evident. Emphysematous lucencies are also present in the lungs. C onsolidation in lateral left apex on the previous has resolved. There are some benign-appearing pleu ral-based calcifications on the left. Mediastinum / janeen: negative Heart / pericardium: negative Vessels: Atherosclerosis includes coronary disease. Aorta is not aneurysmal. Central pulmonary antoinette cyndi are borderline prominent. Musculoskeletal / Body wall: Degenerative changes in the spine with mildly accentuated thoracic kypho tic curvature. Lymph node assessment: Granulomatous calcifications in the right hilum and mediastinum. Lower neck: negative Upper abdomen: Granulomatous splenic and minimally hepatic calcifications. IMPRESSION: 1. Peripheral interstitial fibrosis with honeycombing involving upper and lower lobes. No substanti al progression from October. This is a nonspecific appearance as could be seen with UIP or hypersensit ivity pneumonitis. 2. Nodular left upper lobe consolidation in October has resolved. 3. Borderline prominent central pulmonary arteries likely reflect a component of increased pulmonary pressure secondary to interstitial lung disease. Report Dictated By: Gary Castaneda MD at 06/08/2018 3:57 PM Report E-Signed By: Gary Castaneda MD at 06/08/2018 4:05 PM [id number]
== END ==
LOC: CT 03:19
PROVIDERS: ATTEND Internal Medicine
DX: J84.9 Interstitial pulmonary disease, unspecified (principal)
CPT/HCPCS: 71250

== ENCOUNTER 2018-07-13 13:59 | Observation (INO) | payer MEDICARE ==
[~2018-07-13] VITALS: Ht 162.6 cm; Wt 77.6 kg
--- NOTE | 2018-07-13 14:06 | ER Report ---
History and Physical Time Seen By MD: 14:06 HPI/ROS CHIEF COMPLAINT: Shortness of breath HISTORY OF PRESENT ILLNESS: This is a 77-year-old female was presents to the emergency department for shortness of breath. The patient states she was in [facility] last 4 days, she and her son drove back from to [place]. She was in [place] and began to have some increased shortness of breath yesterday worsening through the night, they drove from [place] to the [place] emergency department today for severe shortness of breath. She is on continuous oxygen at 5 liters. Upon arrival her SPO2 71%, on her home oxygen, I did not her personal nasal cannula to be tied in a knot. She does have a history of COPD and mild pulmonary hypertension. She states that she's had some increased swelling in her lower extremities since yesterday as well and difficulty urinating. She denies fevers or chills. No nausea vomiting. No rashes. No chest pain. REVIEW OF SYSTEMS: Constitutional: No fever, no chills. Eyes: No discharge. ENT: No sore throat. Cardiovascular: No chest pain, no palpitations. Respiratory: As above. Gastrointestinal: No abdominal pain, no vomiting. Genitourinary: As above. Musculoskeletal: No back pain. Skin: No rashes. Neurological: No headache. Allergies: Coded Allergies: amoxicillin (Verified Allergy, Intermediate, 03/02/18) azithromycin (Verified Allergy, Intermediate, 03/02/18) cephalexin (Verified Allergy, Intermediate, 03/02/18) clavulanic acid (Verified Allergy, Intermediate, 03/02/18) bisoprolol (Verified Allergy, Mild, RASH, 03/02/18) Home Meds Reported Medications Levalbuterol Tartrate (Levalbuterol Tartrate Hfa) 45 Mcg/Actuation Hfa.aer.ad, 2 PUFF PO Q4-6H 07/13/18 Triamcinolone Acetonide 0.1% Cr 15 Gm Tube (TRIAMCINOLONE ACETONIDE 0.1% CREAM) 15 Gm Cream..g., 5 GM TP BID, TUBE 07/13/18 Tramadol Hcl (TRAMADOL HCL) 50 Mg Tablet, 50 MG PO Q8H, TAB 07/13/18 Cetirizine Hcl (ZYRTEC) 10 Mg Tablet, 10 MG PO QDAY, TAB 07/13/18 Esomeprazole Magnesium (NEXIUM) 40 Mg Capsule.dr, 1 CAP PO QDAY, CAP 07/13/18 Prednisone (PREDNISONE) 5 Mg Tab.ds.pk, 5 MG PO QDAY 07/13/18 Levothyroxine Sodium (LEVOTHYROXINE SODIUM) 100 Mcg Tablet, 100 MCG PO DAILY 03/02/18 Triamterene/Hydrochlorothiazid (TRIAMTERENE-HCTZ 37.5-25 MG CP) 1 Each Capsule, 1 TAB PO DAILY 03/02/18 Milnacipran (SAVELLA) 50 Mg Tab, 50 MG PO BID 03/02/18 Ropinirole Hcl (ROPINIROLE HCL) 0.25 Mg Tablet, 0.25 MG PO HS 03/02/18 Docusate Sodium (COLACE) 100 Mg Capsule, 100 MG PO QDAY, CAPSULE 10/24/17 Lactobacillus Combination No.4 (PROBIOTIC) 1 Each Capsule, 1 EACH PO QDAY, CAPSULE 10/24/17 Discontinued Reported Medications Ranitidine Hcl (RANITIDINE HCL) 150 Mg Tablet, 150 MG PO DAILY 03/02/18 Prednisone (PREDNISONE) 2.5 Mg Tablet, 5 MG PO DAILY 03/02/18 Omeprazole (OMEPRAZOLE) 20 Mg Tablet.dr, 20 MG PO QDAY, TAB 10/24/17 Fenofibrate Nanocrystallized (FENOFIBRATE) 145 Mg Tablet, 145 MG PO QDAY 10/24/17 Past Medical/Surgical History The patient has a past medical and surgical history of chronic lung disease, hypertension, hypercholesterolemia, cholecystectomy, hysterectomy, arthritis, osteoporosis, wears glasses. Reviewed Nurses Notes: Yes Hx Smoking: Yes Smoking Status: Former Smoker Hx Substance Use Disorder: No Hx Alcohol Use: No Constitutional Vital Sign - Last 24 Hours 07/13/18 07/13/18 07/13/18 07/13/18 13:59 14:04 14:04 14:12 Temp 97.6 Pulse 115 105 Resp 60 B/P (MAP) 136/116 136/116 (123) Pulse Ox 71 O2 Delivery Nasal Cannula O2 Flow Rate 10.0 07/13/18 07/13/18 07/13/18 07/13/18 14:13 14:15 14:29 14:30 Pulse 93 Resp 29 B/P (MAP) 150/105 (120) 132/69 (90) 152/99 (116) Pulse Ox 98 07/13/18 07/13/18 07/13/18 07/13/18 14:45 14:59 15:00 15:15 Pulse 82 Resp 16 B/P (MAP) 165/86 (112) 144/85 (104) 158/95 (116) Pulse Ox 96 07/13/18 07/13/18 07/13/18 07/13/18 15:20 15:30 15:45 15:50 Pulse 100 79 Resp 28 25 B/P (MAP) ???/??? (1665) 148/80 (102) Pulse Ox 91 96 07/13/18 07/13/18 07/13/18 07/13/18 16:00 16:15 16:20 16:30 Pulse 74 Resp 14 B/P (MAP) 145/79 (101) 158/87 (110) 178/88 (118) Pulse Ox 99 07/13/18 07/13/18 07/13/18 16:45 16:50 17:00 Pulse 88 Resp 31 B/P (MAP) 178/92 (120) 163/91 (115) Pulse Ox 94 Physical Exam General Appearance: The patient is alert, has no immediate need for airway protection and no signs of toxicity, pale. Eyes: Pupils equal and round no pallor or injection. ENT, Mouth: Mucous membranes are moist. Respiratory: Patient has intercostal and super clavicular retractions, increased work of breathing, no audible wheezing. Diminished lung throughout, mild rhonchi throughout. Cardiovascular: Regular rate and rhythm, no murmurs, clicks or rubs. Gastrointestinal: Abdomen is soft and non tender, no masses, bowel sounds normal. Neurological: Alert and oriented 4. Moving all extremities. Following all commands. No focal neuro deficits. Skin: Warm and dry, no rashes. Musculoskeletal: Neck is supple non tender. Extremities are nontender, nonswollen and have full range of motion. DIFFERENTIAL DIAGNOSIS: After history and physical exam differential diagnosis was considered for shortness of breath including but not limited to pulmonary infectious process, COPD, asthma, pulmonary embolus and congestive heart failure. Medical Decision Making Data Points Result Diagram: 07/13/18 1417 07/13/18 1417 Laboratory Hematology Test 07/13/18 14:17 07/13/18 15:19 Red Blood Count 3.92 M/uL (4.17-5.56) Mean Corpuscular Volume 96.9 fL (80.0-96.0) Mean Corpuscular Hemoglobin 32.4 pg (26.0-33.0) Mean Corpuscular Hemoglobin Concent 33.5 g/dL (32.0-36.0) Red Cell Distribution Width 14.5 % (11.5-14.5) Mean Platelet Volume 7.4 fL (7.2-11.1) Neutrophils (%) (Auto) 59.8 % (39.4-72.5) Lymphocytes (%) (Auto) 21.2 % (17.6-49.6) Monocytes (%) (Auto) 15.3 % (4.1-12.4) Eosinophils (%) (Auto) 2.8 % (0.4-6.7) Basophils (%) (Auto) 0.9 % (0.3-1.4) Nucleated RBC Relative Count (auto) 0.1 /100WBC Neutrophils # (Auto) 3.2 K/uL (2.0-7.4) Lymphocytes # (Auto) 1.1 K/uL (1.3-3.6) Monocytes # (Auto) 0.8 K/uL (0.3-1.0) Eosinophils # (Auto) 0.1 K/uL (0.0-0.5) Basophils # (Auto) 0.0 K/uL (0.0-0.1) Nucleated RBC Absolute Count (auto) 0.00 K/uL D-Dimer Quantitative (PE/DVT) 1.51 ug/ml (0-0.50) Sodium Level 138 mmol/L (137-145) Potassium Level 4.1 mmol/L (3.5-5.0) Chloride Level 100 mmol/L (98-107) Carbon Dioxide Level 28 mmol/L (22-31) Blood Urea Nitrogen 14 mg/dl (7-18) Creatinine 0.80 mg/dl (0.52-1.04) Glomerular Filtration Rate Calc > 60.0 Random Glucose 109 mg/dl (75-110) Calcium Level 9.1 mg/dl (8.4-10.2) Total Bilirubin 0.7 mg/dl (0.2-1.3) Aspartate Amino Transf (AST/SGOT) 92 U/L (0-35) Alanine Aminotransferase (ALT/SGPT) 74 U/L (0-56) Alkaline Phosphatase 130 U/L (0-126) Troponin I 0.042 ng/ml B-Type Natriuretic Peptide 619 pg/ml (0-100) Total Protein 7.9 g/dl (6.3-8.2) Albumin 4.0 g/dl (3.5-5.0) Urine Color Yellow Urine Clarity Clear Urine pH 5.0 pH (4.8-9.5) Urine Specific [place] 1.008 Urine Protein Negative mg/dL (NEGATIVE) Urine Glucose (UA) Negative mg/dL (NEGATIVE) Urine Ketones Negative mg/dL (NEGATIVE) Urine Blood Negative (NEGATIVE) Urine Nitrite Negative (NEGATIVE) Urine Bilirubin Negative (NEGATIVE) Urine Urobilinogen Negative mg/dL (0.2-1.9) Urine Leukocyte Esterase Negative (NEGATIVE) Urine RBC None /HPF (0-2/HPF) Urine WBC 1 /HPF (0-5/HPF) Urine Squamous Epithelial Cells None /LPF (NONE-FEW) Urine Bacteria Negative /HPF (NONE-FEW) Urine Mucus None /HPF (NONE-FEW) Chemistry Test 07/13/18 14:17 07/13/18 15:19 White Blood Count 5.3 k/uL (4.5-11.0) Red Blood Count 3.92 M/uL (4.17-5.56) Hemoglobin 12.7 g/dL (12.0-16.0) Hematocrit 37.9 % (34.0-47.0) Mean Corpuscular Volume 96.9 fL (80.0-96.0) Mean Corpuscular Hemoglobin 32.4 pg (26.0-33.0) Mean Corpuscular Hemoglobin Concent 33.5 g/dL (32.0-36.0) Red Cell Distribution Width 14.5 % (11.5-14.5) Platelet Count 363 K/uL (150-450) Mean Platelet Volume 7.4 fL (7.2-11.1) Neutrophils (%) (Auto) 59.8 % (39.4-72.5) Lymphocytes (%) (Auto) 21.2 % (17.6-49.6) Monocytes (%) (Auto) 15.3 % (4.1-12.4) Eosinophils (%) (Auto) 2.8 % (0.4-6.7) Basophils (%) (Auto) 0.9 % (0.3-1.4) Nucleated RBC Relative Count (auto) 0.1 /100WBC Neutrophils # (Auto) 3.2 K/uL (2.0-7.4) Lymphocytes # (Auto) 1.1 K/uL (1.3-3.6) Monocytes # (Auto) 0.8 K/uL (0.3-1.0) Eosinophils # (Auto) 0.1 K/uL (0.0-0.5) Basophils # (Auto) 0.0 K/uL (0.0-0.1) Nucleated RBC Absolute Count (auto) 0.00 K/uL D-Dimer Quantitative (PE/DVT) 1.51 ug/ml (0-0.50) Glomerular Filtration Rate Calc > 60.0 Calcium Level 9.1 mg/dl (8.4-10.2) Total Bilirubin 0.7 mg/dl (0.2-1.3) Aspartate Amino Transf (AST/SGOT) 92 U/L (0-35) Alanine Aminotransferase (ALT/SGPT) 74 U/L (0-56) Alkaline Phosphatase 130 U/L (0-126) Troponin I 0.042 ng/ml B-Type Natriuretic Peptide 619 pg/ml (0-100) Total Protein 7.9 g/dl (6.3-8.2) Albumin 4.0 g/dl (3.5-5.0) Urine Color Yellow Urine Clarity Clear Urine pH 5.0 pH (4.8-9.5) Urine Specific [place] 1.008 Urine Protein Negative mg/dL (NEGATIVE) Urine Glucose (UA) Negative mg/dL (NEGATIVE) Urine Ketones Negative mg/dL (NEGATIVE) Urine Blood Negative (NEGATIVE) Urine Nitrite Negative (NEGATIVE) Urine Bilirubin Negative (NEGATIVE) Urine Urobilinogen Negative mg/dL (0.2-1.9) Urine Leukocyte Esterase Negative (NEGATIVE) Urine RBC None /HPF (0-2/HPF) Urine WBC 1 /HPF (0-5/HPF) Urine Squamous Epithelial Cells None /LPF (NONE-FEW) Urine Bacteria Negative /HPF (NONE-FEW) Urine Mucus None /HPF (NONE-FEW) Coagulation Test 07/13/18 14:17 D-Dimer Quantitative (PE/DVT) 1.51 ug/ml Urinalysis Test 07/13/18 15:19 Urine Color Yellow Urine Clarity Clear Urine pH 5.0 pH (4.8-9.5) Urine Specific [place] 1.008 Urine Protein Negative mg/dL (NEGATIVE) Urine Glucose (UA) Negative mg/dL (NEGATIVE) Urine Ketones Negative mg/dL (NEGATIVE) Urine Blood Negative (NEGATIVE) Urine Nitrite Negative (NEGATIVE) Urine Bilirubin Negative (NEGATIVE) Urine Urobilinogen Negative mg/dL (0.2-1.9) Urine Leukocyte Esterase Negative (NEGATIVE) Urine RBC None /HPF (0-2/HPF) Urine WBC 1 /HPF (0-5/HPF) Urine Squamous Epithelial Cells None /LPF (NONE-FEW) Urine Bacteria Negative /HPF (NONE-FEW) Urine Mucus None /HPF (NONE-FEW) EKG/Imaging Imaging Location: [facility] [place] Patient: Elnaa Fuentes : 1940 Visit/Account:[id number] Date of Sevice: 07/13/2018 Exam type: CHEST PA LAT History: dyspnea Comparison: October 24, 2017. Findings: Chronic interstitial changes and chronic peribronchial thickening the peribronchial thickening is slightly more prominent and could represent a superimposed acute infectious/inflammatory process are again noted throughout the lungs. The cardiac silhouette remains stable. There is an S-shaped scoliosis of the thoracolumbar spine. IMPRESSION: 1. Chronic interstitial changes and chronic Bronchial thickening seen throughout the lungs. The peribronchial thickening is slightly increased which could represent progression of patient's chronic changes although an acute superimposed peribronchial inflammatory process is included in the differential diagnosis Report Dictated By: Ivelisse Gomez MD at 07/13/2018 2:52 PM Report E-Signed By: Ivelisse Gomez MD at 07/13/2018 2:54 PM SULEMAN:[email or web address] ED Course/Re-evaluation Clinical Indication for ER IV: IV Access ED Course The patient was admitted to room. A history and physical were obtained. Differential diagnoses were considered. An IV was started. A CBC, CMP, troponin and d-dimer were obtained.CBC unremarkable, chemistry showing AST 92, ALT 74, alk phosphatase 1:30, BNP 619, d-dimer 1.51, Troponin 0.042. Likely in the indeterminate range due to additional strain on the heart from the hypoxia. As of note within the patient was admitted to room 5 I did note that her personal oxygen tubing was tight and a knot under her chin, the patient was unaware of this, unsure if the tubing has been in this condition for any length of time. Negative UA. A two-view chest x-ray showing Chronic interstitial changes and chronic, Bronchial thickening seen throughout the lungs. The peribronchial thickening is slightly increased which could represent progression of patient's chronic changes. Given the progression of the x-ray, and the elevated d-dimer, a CT of the chest was obtained showing No evidence of pulmonary emboli, Evidence of a prior granulomatous process, Peripheral interstitial fibrosis with honeycombing involving the upper and lower lobes. There is been an overall increase in interstitial prominence when compared the prior study suggesting a possible acute interstitial pneumonia or other superimposed acute interstitial process. I did review the results with the patient. Given the severe dyspnea upon arrival and the changes in the images and the patient's tenuous lungs, I did recommend an admission to the hospital, I did speak with Dr. sim Blackman as noted below, he is accepting the patient in the hospitalist services. The patient also stated that she did feel much better after oxygen and prevention, she also states that even after feeling much better, less dyspneic and improved oxygenation, she does feel quite short of breath whenever she stands up at the bedside and tends to ambulate. This could also be secondary to her relocation to [place] from [place]. We discussed this at length. Patient was in agreement. 07/13/2018 4:44:13 pm I did speak with Dr. Lester Blackman regarding the patient's case for a possible admission. 07/13/2018 5:00:[address] Ale Blackman accepted the patient into the hospitalist services for dyspnea and hypoxia. Decision to Disposition Date: Jul 13, 2018 Decision to Disposition Time: 17:09 Depart Departure Latest Vital Signs Vital Signs Date Time Temp Pulse Resp B/P (MAP) Pulse Ox O2 Delivery O2 Flow Rate FiO2 07/13/18 17:00 163/91 (115) 07/13/18 16:50 88 31 94 07/13/18 14:12 10.0 07/13/18 14:04 97.6 Nasal Cannula Impression: Primary Impression: Dyspnea Additional Impression: Hypoxia Condition: Improved Disposition: Admitted from ER Problem Qualifiers Primary Impression: Dyspnea Dyspnea type: other forms of dyspnea Qualified Codes: R06.09 - Other forms of dyspnea SUSHIL SALAS Jul 13, 2018 14:06
--- NOTE | 2018-07-13 14:19 | EKG ---
FACILITY: [facility] [place] PATIENT NAME: JIA BRYSON : [id number] MR: [id number] V: [id number] EXAM DATE: ORDERING PHYSICIAN: SUSHIL SALAS TECHNOLOGIST: Test Reason : SOB Blood Pressure : / mmHG Vent. Rate : 078 BPM Atrial Rate : 078 BPM P-R Int : 144 ms QRS Dur : 074 ms QT Int : 398 ms P-R-T Axes : 057 002 -05 degrees QTc Int : 453 ms Normal sinus rhythm with sinus arrhythmia Possible Left atrial enlargement Left ventricular hypertrophy T wave abnormality, consider inferior ischemia and septal Abnormal ECG When compared with ECG of 24-OCT-2017 06:43, No significant change was found Confirmed by DUANE DENNIS ([id number]) on 07/13/2018 6:52:24 PM Referred By: Confirmed By:DUANE DENNIS
[2018-07-13 14:32] LABS: PLATELET COUNT, AUTOMATED 363 K/uL (150-450)
--- NOTE | 2018-07-13 15:02 | RADIOLOGY IMAGING REPORT ---
FACILITY: [facility] - [place], [place] PATIENT NAME: Elana Fuentes : 1940 MR: [id number] V: [id number] EXAM DATE: ORDERING PHYSICIAN: SUSHIL SALAS TECHNOLOGIST: Location: [facility] Patient: Elana Fuentes : 1940 Visit/Account:[id number] Date of Sevice: 07/13/2018 Exam type: CHEST PA LAT History: dyspnea Comparison: October 24, 2017. Findings: Chronic interstitial changes and chronic peribronchial thickening the peribronchial thickening is sli ghtly more prominent and could represent a superimposed acute infectious/inflammatory process are aga in noted throughout the lungs. The cardiac silhouette remains stable. There is an S-shaped scoliosi s of the thoracolumbar spine. IMPRESSION: 1. Chronic interstitial changes and chronic Bronchial thickening seen throughout the lungs. The peribronchial thickening is slightly increased which could represent progression of patient's chr onic changes although an acute superimposed peribronchial inflammatory process is included in the dif ferential diagnosis Report Dictated By: Ivelisse Gomez MD at 07/13/2018 2:52 PM Report E-Signed By: Ievlisse Gomez MD at 07/13/2018 2:54 PM WSN:[email or web address]
[2018-07-13] MEDS ORDERED: NS(*) 0.9% 50 ML BAG 50 ML ONE (15:09)
--- NOTE | 2018-07-13 16:01 | RADIOLOGY IMAGING REPORT ---
FACILITY: [facility] - [place] PATIENT NAME: Elana Fuentes : 1940 MR: [id number] V: [id number] EXAM DATE: ORDERING PHYSICIAN: VALERIA RILEY TECHNOLOGIST: Location: [facility] Patient: Elana Fuentes : 1940 Visit/Account:[id number] Date of Sevice: 07/13/2018 CT CTA CHEST W & W/O CON HISTORY: Hypoxia, elevated d-dimer ADDITIONAL HISTORY: None. TECHNIQUE: CTA chest with intravenous contrast. Axial imaging acquired following administration of IV contrast timed for maximum opacification of the pulmonary arterial vasculature. Slab 3-D MIP preet nstructed images were also created for further evaluation and interpretation. Reconstruction of the [facility] data set includes multiplanar 2-D in the sagittal and coronal planes and 3-D reconstructed jigna nal slab MIP series. 3-D images were created by the technologist.Dose Lowering Technique One of the following dose optimization techniques was utilized in the performance of this exam: Autom ated exposure control; adjustment of the mA and/or kV according to the patient's size; or use of an i terative reconstruction technique. Specific details can be referenced in the facility's radiology C T exam operational policy. CONTRAST: 75 mL Isovue-[id number] COMPARISON: CT chest June 08, 2019 FINDINGS: Lungs/pleura: Again noted is peripheral reticular fibrosis and honeycombing throughout the lungs are prominent in the upper lung zones has been a slight overall increase in the interstitial prominence however diffusely throughout the lungs. No evidence of pleural effusions. Left-sided pleural-based calcifications also again noted Heart/vessels: There is no demonstration of pulmonary emboli. Prominent central pulmonary arteries again seen. There are coronary artery calcifications Mediastinum/lymph nodes: There are calcified right hilar mediastinal lymph nodes Visualized upper abdomen: Calcified granulomas identified in the liver and spleen Bones/soft tissues: Degenerative changes in the thoracic spine Additional findings: None IMPRESSION: No evidence of pulmonary emboli Evidence of a prior granulomatous process Peripheral interstitial fibrosis with honeycombing involving the upper and lower lobes. There is bee n an overall increase in interstitial prominence when compared the prior study suggesting a possible acute interstitial pneumonia or other superimposed acute interstitial process Report Dictated By: Ivelisse Gomez MD at 07/13/2018 3:50 PM Report E-Signed By: Ivelisse Gomez MD at 07/13/2018 3:57 PM WSN:[email or web address]
[2018-07-13 17:40] VITALS: BP 149/74
[2018-07-13] MEDS ORDERED: traMADol 50 MG TAB PO PRN (17:45)
[2018-07-13] MEDS ORDERED: LEVALBUTEROL 1.25 MG/3 ML NEB NEB PRN (17:45)
--- NOTE | 2018-07-13 18:10 | History & Physical ---
History of Present Illness History of Present Illness 77yo female with Rheumatic lung disease and COPD who came to the ER for increased WOB. She is chronically on 5 liters of O2. She has been in [place] since October and has a lot of baseline KAHN. She was in [place], [place] for the last 4 days. She has had more of a cough for the last 3 days. She drove to [place], [place], yesterday, and noted that she started getting SOB and LE edema. She did note some chills last night. Today, she drove to [place]. She was unable to urinate at a rest area during the drive. By the time, they got to [place] she was getting very SOB at rest and had them take her directly to the ER. No sick contacts. In the ER, she came in acute distress and was quite hypoxic. It was noted that her O2 tubing had a knot in it. She was put on supplemental O2 and has been able to titrate down to 5 liters. She does get dyspneic with activity. History Problems: (1) Rheumatoid lung disease Status: Chronic (2) COPD (chronic obstructive pulmonary disease) Status: Chronic (3) HTN (hypertension) Status: Chronic (4) Hypothyroid (5) Fibromyalgia Status: Chronic Home Meds Reported Medications Ranitidine Hcl (RANITIDINE HCL) 150 Mg Tablet, 150 MG PO DAILY 03/02/18 Levothyroxine Sodium (LEVOTHYROXINE SODIUM) 100 Mcg Tablet, 100 MCG PO DAILY 03/02/18 Triamterene/Hydrochlorothiazid (TRIAMTERENE-HCTZ 37.5-25 MG CP) 1 Each Capsule, 1 TAB PO DAILY 03/02/18 Prednisone (PREDNISONE) 2.5 Mg Tablet, 2.5 MG PO DAILY 03/02/18 Milnacipran (SAVELLA) 50 Mg Tab, 50 MG PO BID 03/02/18 Ropinirole Hcl (ROPINIROLE HCL) 0.25 Mg Tablet, 0.25 MG PO HS 03/02/18 Omeprazole (OMEPRAZOLE) 20 Mg Tablet.dr, 20 MG PO QDAY, TAB 10/24/17 Docusate Sodium (COLACE) 100 Mg Capsule, 100 MG PO QDAY, CAPSULE 10/24/17 Lactobacillus Combination No.4 (PROBIOTIC) 1 Each Capsule, 1 EACH PO QDAY, CAPSULE 10/24/17 Fenofibrate Nanocrystallized (FENOFIBRATE) 145 Mg Tablet, 145 MG PO QDAY 10/24/17 Allergies: Coded Allergies: amoxicillin (Verified Allergy, Intermediate, 03/02/18) azithromycin (Verified Allergy, Intermediate, 03/02/18) cephalexin (Verified Allergy, Intermediate, 03/02/18) clavulanic acid (Verified Allergy, Intermediate, 03/02/18) bisoprolol (Verified Allergy, Mild, RASH, 03/02/18) Other Social/Family Hx . Quit smoking 20 years ago. Has about a 10 pkyrhx. No alcohol use. Hx Smoking: Yes Smoking Status: Former Smoker Hx Alcohol Use: No Hx Substance Use Disorder: No Review of Systems All Systems Reviewed/Normal: Yes, Except as Noted Exam Vital Signs Vital Signs Date Time Temp Pulse Resp B/P (MAP) Pulse Ox O2 Delivery O2 Flow Rate FiO2 07/13/18 17:40 97.6 105 20 149/74 (99) 92 Oxy Mask 5.0 General Appearance: Alert, Awake, Other (mild wob) Neuro: No Gross deficits Eyes: PERRLA Cardiovascular: Regular Rate and Rhythm Respiratory: Other (Diffuse insp crackles to mid lung bilaterally and anteriorly) GI: Abd Soft and Non-Tender Extremities: Edema (2+ pitting in ankles) Medical Decision Making Data Points Result Diagram: 07/13/18141607/13/181416 Item Value Date Time B-Type Natriuretic Peptide 619 pg/ml H 07/13/18 141 Total Bilirubin 0.7 mg/dl 07/13/18 141 Aspartate Amino Transf (AST/SGOT) 92 U/L H 07/13/18 141 Alanine Aminotransferase (ALT/SGPT) 74 U/L H 07/13/18 141 Alkaline Phosphatase 130 U/L H 07/13/18 141 Neutrophils (%) (Auto) 59.8 % 07/13/18 141 Lymphocytes (%) (Auto) 21.2 % 07/13/18 141 Monocytes (%) (Auto) 15.3 % H 07/13/18 141 Eosinophils (%) (Auto) 2.8 % 07/13/18 141 Basophils (%) (Auto) 0.9 % 07/13/181416 D-Dimer Quantitative (PE/DVT) 1.51 ug/ml H 07/13/18 1417 Urine RBC None /HPF 07/13/18 1519 Urine WBC 1 /HPF 07/13/18 1519 Urine Squamous Epithelial Cells None /LPF 07/13/18 1519 Urine Bacteria Negative /HPF 07/13/18 1519 Urine Leukocyte Esterase Negative 07/13/18 1519 Urine Nitrite Negative 07/13/18 1519 EKG / Imaging Imaging 07/13/18 Chest CTA - No evidence of pulmonary emboli Evidence of a prior granulomatous process Peripheral interstitial fibrosis with honeycombing involving the upper and lower lobes. There is been an overall increase in interstitial prominence when compared the prior study suggesting a possible acute interstitial pneumonia or other superimposed acute interstitial process 07/13/18 CXR - 1. Chronic interstitial changes and chronic Bronchial thickening seen throughout the lungs. The peribronchial thickening is slightly increased which could represent progression of patient's chronic changes although an acute superimposed peribronchial inflammatory process is included in the differential diagnosis Assessment and Plan Problems: (1) Dyspnea Status: Acute Assessment & Plan: She presented with 3 days of cough, and 2 days of prog ressive SOB after a [address] back to [place] today from being at a lower elevation. She was found to have a knot in her O2 tubing and is now back to her baseline O2 at 5L without any other intervention. CT of the chest did note overall increase in interstitial prominence. BNP was elevated and troponin was borderline. There is no neutrophilia, elevated WBC or fever. Will watch her overnight and give scheduled Xopenex. It is unknown how long she had the knot in the O2 tubing, which certainly contributed to her dyspnea and hypoxia. Will recheck BNP and troponin in the morning. (2) Edema Status: Acute Assessment & Plan: Worsened over the last 2 days corresponding to when the drive started. Will follow. (3) Rheumatoid lung disease Status: Chronic Assessment & Plan: Continue chronic prednisone. (4) COPD (chronic obstructive pulmonary disease) Status: Chronic Assessment & Plan: Continue prn Xopenex and will some scheduled. (5) Fibromyalgia Status: Chronic Assessment & Plan: Continue chronic tramadol. (6) HTN (hypertension) Status: Chronic Assessment & Plan: Continue chronic spironolactone and triamterene/HCTZ. Copies to: LUPE COSTELLO MD; FORTUNATO JENKINS MD ; Venous Thromboembolism Antithrombotics Is Pt On Any Antithrombotics?: No Exam Sepsis Risk: No Definite Risk Problem Qualifiers (1) Dyspnea: Dyspnea type: other forms of dyspnea Qualified Codes: R06.09 - Other forms of dyspnea DUANE DENNIS MD Jul 13, 2018 18:10
[2018-07-13] MEDS: LEVALBUTEROL 1.25 MG/3 ML NEB NEB SCH (18:20)
[2018-07-13 18:46] VITALS: BP 159/81
[2018-07-13] MEDS ORDERED: TRAM-420 PO (19:38)
[2018-07-13] MEDS ORDERED: TRIA15CR40 TP (19:38)
[2018-07-13] MEDS ORDERED: PRED-416 PO (19:38)
[2018-07-13] MEDS ORDERED: CETI-176 PO (19:38)
[2018-07-13] MEDS ORDERED: LEVA15HF2 PO (19:38)
[2018-07-13] MEDS ORDERED: ESOM40CA42 PO (19:38)
[2018-07-13] MEDS: MILNACIPRAN 50 MG PO SCH (20:30)
[2018-07-13] MEDS: DOCUSATE SODIUM 100 MG CAP PO SCH (20:30)
[2018-07-13] MEDS ORDERED: LACTOBACILLUS ACIDOPHILUS TAB PO SCH (21:00)
[2018-07-14 05:14] VITALS: BP 170/84
[2018-07-14] MEDS: LEVALBUTEROL 1.25 MG/3 ML NEB NEB SCH ×2 (05:33→11:15)
[2018-07-14 05:43] LABS: PLATELET COUNT, AUTOMATED 324 K/uL (150-450)
[2018-07-14] MEDS ORDERED: LEVOTHYROXINE SOD 0.1 MG TAB PO SCH (06:00)
[2018-07-14 07:37] VITALS: BP 135/67
[2018-07-14] MEDS ORDERED: TRIAMTERENE/HCTZ 37.5-25MG CAPSULE PO SCH (09:00)
[2018-07-14] MEDS ORDERED: predniSONE 5 MG TAB PO SCH (09:00)
[2018-07-14] MEDS ORDERED: SPIRONOLACTONE 25 MG TAB PO SCH (09:00)
[2018-07-14] MEDS: MILNACIPRAN 50 MG PO SCH (09:18)
[2018-07-14] MEDS: DOCUSATE SODIUM 100 MG CAP PO SCH (09:18)
[2018-07-14 10:39] VITALS: Ht 162.6 cm; Wt 77.6 kg
[2018-07-14 11:33] VITALS: BP 127/67
--- NOTE | 2018-07-14 13:16 | Hospitalist Depart ---
Discharge Summary Reason for Hosp/Final Diag: (1) Dyspnea Status: Acute Hospital Course & Plan: The patient presented with 3 days of cough, and 2 days of progressive SOB after a [address] back to [place] from a lower elevation ([place]). The patient was found to have a knot in her O2 tubing upon arrival to ER. She was hypoxic due to not receiving her usual oxygen. She was placed back on her baseline O2 at 5L without any other intervention and admitted for observation. The patient has rheumatoid arthritis and rheumatoid lung disease. She sees Dr. Agustin, director geothermal operations, for this. CTA of the chest was performed in the ER and did note an overall increase in her chronic interstitial prominence . BNP was slightly elevated and troponin was equivocal. There was no neutrophilia, elevated WBC or fever. She was watched overnight and given scheduled Xopenex. It was felt she did have some cardiac strain from prolonged hypoxia. A BNP and troponin the morning of discharge were improved from admission. It is unknown how long she had the knot in the O2 tubing, but this certainly contributed to her dyspnea and hypoxia. The patient felt as though she was back to her baseline the following morning and was ready to go home. (2) Edema Status: Acute Hospital Course & Plan: The patient did develop some mild swelling of her lower extremities associated with driving in the car for 2 days and the hypoxia (as described above). (3) Rheumatoid lung disease Status: Chronic Hospital Course & Plan: The patient was continued on her chronic prednisone dose. (4) COPD (chronic obstructive pulmonary disease) Status: Chronic Hospital Course & Plan: The patient was continued on her prn Xopenex as well as Xopenex scheduled tid. (5) Fibromyalgia Status: Chronic Hospital Course & Plan: The patient was continued on her chronic tramadol for pain. (6) HTN (hypertension) Status: Chronic Hospital Course & Plan: She was continued on her chronic spironolactone and triamterene/HCTZ. Departure Weight (Pounds): 171 Result Diagram: 07/14/1852907/14/18529 Item Value Date Time White Blood Count 4.7 k/uL 07/14/18529 Red Blood Count 3.65 M/uL L 07/14/18529 Hemoglobin 12.0 g/dL 07/14/18529 Hematocrit 35.5 % 07/14/18 0530 Mean Corpuscular Volume 97.2 fL H 07/14/18 0530 Mean Corpuscular Hemoglobin 32.9 pg 07/14/18 0530 Mean Corpuscular Hemoglobin Concent 33.9 g/dL 07/14/18 0530 Red Cell Distribution Width 14.7 % H 07/14/18 0530 Platelet Count 324 K/uL 07/14/18 0530 Mean Platelet Volume 7.1 fL L 07/14/18 0530 Neutrophils (%) (Auto) 58.5 % 07/14/18 0530 Lymphocytes (%) (Auto) 20.1 % 07/14/18 0530 Monocytes (%) (Auto) 15.3 % H 07/14/18 0530 Eosinophils (%) (Auto) 5.1 % 07/14/18 05 Basophils (%) (Auto) 1.0 % 07/14/18 0530 Nucleated RBC Relative Count (auto) 0.1 /100WBC 07/14/18 0530 Neutrophils # (Auto) 2.7 K/uL 07/14/18 0530 Lymphocytes # (Auto) 0.9 K/uL L 07/14/18 0530 Monocytes # (Auto) 0.7 K/uL 07/14/18 0530 Eosinophils # (Auto) 0.2 K/uL 07/14/18 0530 Basophils # (Auto) 0.0 K/uL 07/14/18 0530 Nucleated RBC Absolute Count (auto) 0.01 K/uL 07/14/18 0530 Urine Color Yellow 07/13/18 1519 Urine Clarity Clear 07/13/18 1519 Urine pH 5.0 pH 07/13/18 1519 Urine Specific [place] 1.008 07/13/18 1519 Urine Protein Negative mg/dL 07/13/18 1519 Urine Glucose (UA) Negative mg/dL 07/13/18 1519 Urine Ketones Negative mg/dL 07/13/18 1519 Urine Blood Negative 07/13/18 1519 Urine Nitrite Negative 07/13/18 1519 Urine Bilirubin Negative 07/13/18 1519 Urine Urobilinogen Negative mg/dL 07/13/18 1519 Urine Leukocyte Esterase Negative 07/13/18 1519 Urine RBC None /HPF 07/13/18 1519 Urine WBC 1 /HPF 07/13/18 1519 Urine Squamous Epithelial Cells None /LPF 07/13/18 1519 Urine Bacteria Negative /HPF 07/13/18 1519 Urine Mucus None /HPF 07/13/18 1519 D-Dimer Quantitative (PE/DVT) 1.51 ug/ml H 07/13/18 1417 B-Type Natriuretic Peptide 619 pg/ml H 07/13/18 1417 B-Type Natriuretic Peptide 424 pg/ml H 07/14/18 0530 Troponin I 0.042 ng/ml 07/13/18 1417 Troponin I 0.038 ng/ml 07/14/18 0530 Sodium Level 139 mmol/L 07/14/18 0530 Potassium Level 3.8 mmol/L 07/14/18 0530 Chloride Level 100 mmol/L 07/14/18 0530 Carbon Dioxide Level 31 mmol/L 07/14/18 0530 Blood Urea Nitrogen 11 mg/dl 07/14/18 0530 Creatinine 0.70 mg/dl 07/14/18 0530 Glomerular Filtration Rate Calc > 60.0 07/14/18 0530 Random Glucose 102 mg/dl 07/14/18 0530 Calcium Level 9.1 mg/dl 07/14/18 0530 Total Bilirubin 0.7 mg/dl 07/14/18 0530 Aspartate Amino Transf (AST/SGOT) 59 U/L H 07/14/18 0530 Alanine Aminotransferase (ALT/SGPT) 62 U/L H 07/14/18 0530 Alkaline Phosphatase 105 U/L 07/14/18 0530 Total Protein 6.5 g/dl 07/14/18 0530 Albumin 3.4 g/dl L 07/14/18 0530 Imaging FACILITY: [facility] [place] PATIENT NAME: Jia Bryson : 1940 MR: [id number] V: [id number] EXAM DATE: ORDERING PHYSICIAN: SUSHIL SALAS TECHNOLOGIST: Location[place] [facility] [place] Patient: Jia Bryson : 1940 Visit/Account:[id number] Date of Sevice: 07/13/2018 Exam type: CHEST PA LAT History: dyspnea Comparison: October 24, 2017. Findings: Chronic interstitial changes and chronic peribronchial thickening the leni bronchial thickening is slightly more prominent and could represent a superimposed acute infectious/inflammatory process are again noted throughout the lungs. The cardiac silhouette remains stable. There is an S-shaped scoliosis of the thoracolumbar spine. IMPRESSION: 1. Chronic interstitial changes and chronic Bronchial thickening seen throughout the lungs. The peribronchial thickening is slightly increased which could represent progression of patient's chronic changes although an acute superimposed peribronchial inflammatory process is included in the differential diagnosis Report Dictated By: Ivelisse Gomez MD at 07/13/2018 2:52 PM Report E-Signed By: Ivelisse Gomez MD at 07/13/2018 2:54 PM WSN:[email or web address] FACILITY: [facility] [place] PATIENT NAME: Jia Bryson : 1940 MR: [id number] V: [id number] EXAM DATE: ORDERING PHYSICIAN: VALERIA RILEY TECHNOLOGIST: [place] [facility] [place] Patient: Jia Bryson : 1940 Visit/Account:[id number] Date of Sevice: 07/13/2018 CT CTA CHEST W & W/O CON HISTORY: Hypoxia, elevated d-dimer ADDITIONAL HISTORY: None. TECHNIQUE: CTA chest with intravenous contrast. Axial imaging acquired following administration of IV contrast timed for maximum opacification of the pulmonary arterial vasculature. Slab 3-D MIP reconstructed images were also created for further evaluation and interpretation. Reconstruction of the source data set includes multiplanar 2-D in the sagittal and coronal planes and 3-D reconstructed coronal slab MIP series. 3-D images were created by the technologist.Dose Lowering Technique One of the following dose optimization techniques was utilized in the performance of this exam: Automated exposure control; adjustment of the mA and/or kV according to the patient's size; or use of an iterative preet nstruction technique. Specific details can be referenced in the facility's radiology CT exam operational policy. CONTRAST: 75 mL Isovue-370 COMPARISON: CT chest June 08, 2019 FINDINGS: Lungs/pleura: Again noted is peripheral reticular fibrosis and honeycombing throughout the lungs are prominent in the upper lung zones has been a slight overall increase in the interstitial prominence however diffusely throughout the lungs. No evidence of pleural effusions. Left-sided pleural-based calcifications also again noted Heart/vessels: There is no demonstration of pulmonary emboli. Prominent central pulmonary arteries again seen. There are coronary artery calcifications Mediastinum/lymph nodes: There are calcified right hilar mediastinal lymph nodes Visualized upper abdomen: Calcified granulomas identified in the liver and spleen Bones/soft tissues: Degenerative changes in the thoracic spine Additional findings: None IMPRESSION: No evidence of pulmonary emboli Evidence of a prior granulomatous process Peripheral interstitial fibrosis with honeycombing involving the upper and lower lobes. There is been an overall increase in interstitial prominence when compared the prior study suggesting a possible acute interstitial pneumonia or other superimposed acute interstitial process Report Dictated By: Ivelisse Gomez MD at 07/13/2018 3:50 PM Report E-Signed By: Ivelisse Gomez MD at 07/13/2018 3:57 PM WSN:[email or web address] EKG FACILITY: [facility] [place] PATIENT NAME: JIA BRYSON : [id number] MR: [id number] V: [id number] EXAM DATE: ORDERING PHYSICIAN: SUSHIL SALAS TECHNOLOGIST: Test Reason : SOB Blood Pressure : / mmHG Vent. Rate : 078 BPM Atrial Rate : 078 BPM P-R Int : 144 ms QRS Dur : 074 ms QT Int : 398 ms P-R-T Axes : 057 002 -05 degrees QTc Int : 453 ms Normal sinus rhythm with sinus arrhythmia Possible Left atrial enlargement Left ventricular hypertrophy T wave abnormality, consider inferior ischemia and septal Abnormal ECG When compared with ECG of 24-OCT-2017 06:43, No significant change was found Confirmed by DUANE DENNIS ([id number]) on 07/13/2018 6:52:24 PM Referred By: Confirmed By:DUANE DENNIS [id number] T: PETELARS/ Condition: Improved Discharge: Home, Self Care Time Spent: < 30 min Discharge Instructions Home Meds Reported Medications Levalbuterol Tartrate (Levalbuterol Tartrate Hfa) 45 Mcg/Actuation Hfa.aer.ad, 2 PUFF PO Q4-6H 07/13/18 Triamcinolone Acetonide 0.1% Cr 15 Gm Tube (TRIAMCINOLONE ACETONIDE 0.1% CREAM) 15 Gm Cream..g., 5 GM TP BID, TUBE 07/13/18 Tramadol Hcl (TRAMADOL HCL) 50 Mg Tablet, 50 MG PO Q8H, TAB 07/13/18 Cetirizine Hcl (ZYRTEC) 10 Mg Tablet, 10 MG PO QDAY, TAB 07/13/18 Esomeprazole Magnesium (NEXIUM) 40 Mg Capsule.dr, 1 CAP PO QDAY, CAP 07/13/18 Prednisone (PREDNISONE) 5 Mg Tab.ds.pk, 5 MG PO QDAY 07/13/18 Levothyroxine Sodium (LEVOTHYROXINE SODIUM) 100 Mcg Tablet, 100 MCG PO DAILY 03/02/18 Triamterene/Hydrochlorothiazid (TRIAMTERENE-HCTZ 37.5-25 MG CP) 1 Each Capsule, 1 TAB PO DAILY 03/02/18 Milnacipran (SAVELLA) 50 Mg Tab, 50 MG PO BID 03/02/18 Ropinirole Hcl (ROPINIROLE HCL) 0.25 Mg Tablet, 0.25 MG PO HS 03/02/18 Docusate Sodium (COLACE) 100 Mg Capsule, 100 MG PO QDAY, CAPSULE 10/24/17 Lactobacillus Combination No.4 (PROBIOTIC) 1 Each Capsule, 1 EACH PO QDAY, CAPSULE 10/24/17 Discontinued Reported Medications Ranitidine Hcl (RANITIDINE HCL) 150 Mg Tablet, 150 MG PO DAILY 03/02/18 Prednisone (PREDNISONE) 2.5 Mg Tablet, 5 MG PO DAILY 03/02/18 Omeprazole (OMEPRAZOLE) 20 Mg Tablet.dr, 20 MG PO QDAY, TAB 10/24/17 Fenofibrate Nanocrystallized (FENOFIBRATE) 145 Mg Tablet, 145 MG PO QDAY 10/24/17 Diet: Regular Activity: As Tolerated Special Instructions: Follow up with your primary care provider next week for recheck. Try to get in to see your director geothermal operations in the next 2-4 weeks if possible. If unable, keep your appointment already scheduled in August. Keep your scheduled appointment with your dbas. Copies to: LUPE COSTELLO MD; FORTUNATO AGUSTIN MD; ROWENA LUNA MD ; Venous Thromboembolism Antithrombotics Is Pt On Any Antithrombotics?: No Problem Qualifiers (1) Dyspnea: Dyspnea type: other forms of dyspnea Qualified Codes: R06.09 - Other forms of dyspnea MICA DIXON MD Jul 14, 2018 13:16
[2018-07-17] MEDS ORDERED: INFLUENZA VIRUS VAC 0.5ML SYR IM ONLY ONE (09:00)
== END 2018-07-14 13:02 | disposition home or self-care (01) ==
LOC: ER 14:18 → MED 17:06
PROVIDERS: ADMIT Internal Medicine; ATTEND Internal Medicine
DX: R09.02 Hypoxemia (principal); R60.0 Localized edema; M05.10 Rheumatoid lung disease with rheumatoid arthritis of unspecified site; M79.7 Fibromyalgia; I10 Essential (primary) hypertension; Z99.81 Dependence on supplemental oxygen; J44.9 Chronic obstructive pulmonary disease, unspecified; E03.9 Hypothyroidism, unspecified; Z88.0 Allergy status to penicillin; Z88.1 Allergy status to other antibiotic agents; Z88.8 Allergy status to other drugs, medicaments and biological substances; Z87.891 Personal history of nicotine dependence; I27.20 Pulmonary hypertension, unspecified
CPT/HCPCS: 36415; 71046; 71275; 81001; 83880; 84484; 85025; 85379; 93005; 94640; 99285; A4353; A9270; G0378; J7050; J7512; 82040; 82247; 82310; 82374; 82435; 82565; 82947; 84075; 84132; 84155; 84295; 84450; 84460; 84520; Q9967

== ENCOUNTER → 2018-09-10 | Outpatient (CLI) | payer MEDICARE ==
[2018-07-14 10:39] VITALS: BMI 29.4
[~2018-09-10] MED LIST changes: +ACETAMINOPHEN 500 MG TAB PO ONE; +CETI-176 PO; +DEXAMETHASONE 4 MG TAB PO ONE; +DEXTROSE 5%(*) 100 ML BAG 100 ML IVPB PRN; +ESOM40CA42 PO; +LEVA15HF2 PO; +LIDOCAINE/SOD BICARB 8.4% SYR ID PRN; +NS(*) 0.9% 100 ML BAG 100 ML IVPB PRN; +PRED-416 PO; +TRAM-420 PO; +TRIA15CR40 TP; +riTUXimab 500 MG/50 ML SDV 1,000 MG in NS(*) 0.9% 1000 ML BAG 900 ML IV ONE
[2018-09-10 09:28] VITALS: BP 136/66
[2018-09-10 13:33] VITALS: BP 119/63
== END ==
LOC: SPU 09:21
PROVIDERS: ATTEND Internal Medicine Rheumatology
DX: M05.79 Rheumatoid arthritis with rheumatoid factor of multiple sites without organ or systems involvement (principal)
CPT/HCPCS: 96413; 96415; A9270; J7030; J7050; J8540; J9312